=== PATIENT | male | born 1935 | race Caucasian/White ===

== ENCOUNTER 2021-01-22 01:03 | Emergency (ER) | payer MEDICARE, OTHER ==
[~2021-01-22] VITALS: Ht 170.2 cm; Wt 74.8 kg
[2021-01-22] MEDS ORDERED: ELIQUIS5 MG PO (01:18)
== END 2021-01-22 01:41 | disposition home or self-care (01) ==
LOC: ED 01:03
DX: L76.22 Postprocedural hemorrhage of skin and subcutaneous tissue following other procedure (principal); I10 Essential (primary) hypertension; I48.91 Unspecified atrial fibrillation; Z79.899 Other long term (current) drug therapy; Z85.828 Personal history of other malignant neoplasm of skin
CPT/HCPCS: 12001; 99282-25